=== PATIENT | male | born 1955 | race Caucasian/White ===

== ENCOUNTER 2018-06-23 11:05 | Day surgery (SDC) | payer BC, MEDICARE ==
[2018-06-22 14:00] VITALS: BMI 33.2
[2018-06-23 11:40] LABS: Hemoglobin 17.4 g/dL (14.0-18.0); Mean Corpuscular HGB CONC 33.4 g/dL (32.0-36.0); Mean Corpuscular Hemoglobin 28.2 pg (27.0-31.0); Mean Corpuscular Volume 84.4 fL (78.0-98.0); Mean Platelet Volume 9.3 fL (7.4-10.4); Platelet Count 178 thou/uL (130-400); RBC Distribution Width 15.2 % (11.5-14.5); Red Blood Cell (RBC) Count 6.18 mill/uL (4.70-6.10); White Blood Cell (WBC) Count 7.8 thou/uL (4.8-10.8)
[2018-06-23 11:41] LABS: Hemoglobin 17.2 g/dL (14.0-18.0)
[2018-06-23] MEDS ORDERED: Oxymetazoline HCl 0.05% ( 15 ML ) ONE ×2 (11:54→12:02)
[2018-06-23] MEDS ORDERED: Fentanyl 100 MCG/2 ML VIAL ONE ×4 (12:00→14:10)
[2018-06-23] MEDS ORDERED: Lidocaine 1% w/Epinephrine 1:100K 20 ML VIAL ONE (12:02)
[2018-06-23 12:12] LABS: Anion Gap 12 mmol/L (10-20); BUN (Urea Nitrogen) 16 mg/dL (8.4-25.7); Calc. Creatinine Clearance 115 mL/min (70-130); Carbon Dioxide 24 mmol/L (23-31); Chloride 107 mmol/L (98-107); Estimated GFR-MDRD 77; Glucose 103 mg/dL (80-115); Potassium 3.6 mmol/L (3.5-5.1); Sodium 139 mmol/L (136-145)
[2018-06-23] MEDS ORDERED: Rocuronium Bromide 10 MG/ML (10ML VIAL) ONE (13:25)
[2018-06-23] MEDS ORDERED: Lidocaine 1% PF 5 ML VIAL ONE (13:25)
[2018-06-23] MEDS ORDERED: Dexamethasone 20 MG/5 ML VIAL ONE (13:25)
[2018-06-23] MEDS ORDERED: PROPOFOL 200 MG/20 ML VIAL ONE (13:25)
[2018-06-23] MEDS ORDERED: Ondansetron PF 4 MG/2 ML Vial ONE (13:25)
[2018-06-23] MEDS ORDERED: Glycopyrrolate 0.2 MG/ML 5 ML SYRINGE ONE (13:25)
[2018-06-23] MEDS ORDERED: hydrALAZINE 20 MG/ML VIAL ONE (14:50)
[2018-06-23] MEDS ORDERED: HYDROcodone/Acetaminophen 5/325 mg Tablet ONE ×2 (15:13)
[2018-06-23] MEDS ORDERED: Labetalol HCl 100 MG/20 ML VIAL ONE (15:21)
--- NOTE | 2018-06-24 09:44 | OP ---
DATE OF PROCEDURE: 06/23/2018 PREOPERATIVE DIAGNOSES: 1. Chronic rhinosinusitis. 2. Allergic fungal sinusitis. 3. Nasal septal deviation. 4. Bilateral inferior turbinate hypertrophy. 5. Left middle turbinate angel bullosa. POSTOPERATIVE DIAGNOSES: 1. Chronic rhinosinusitis. 2. Allergic fungal sinusitis. 3. Nasal septal deviation. 4. Bilateral inferior turbinate hypertrophy. 5. Left middle turbinate angel bullosa. PROCEDURES PERFORMED: 1. Bilateral endoscopic sinus surgery, total ethmoidectomies. 2. Bilateral endoscopic sinus surgery, maxillary antrostomies. 3. Bilateral endoscopic sinus surgery, frontal sinusotomies. 4. Nasal septoplasty. 5. Bilateral inferior turbinate submucosal resection. 6. Endoscopic resection of left middle turbinate angel bullosa. ESTIMATED BLOOD LOSS: 50 mL. COMPLICATIONS: None. ANESTHESIA: GETA. PROCEDURE IN DETAIL: Patient was taken to the operating room and placed supine on the table. General endotracheal anesthesia was obtained by the anesthesia staff. Tube was secured in the left lower lip. Patient was then placed in the beach chair position, and Afrin pledgets were placed in the nasal cavity. Injections of 1% lidocaine with 1:100,000 epinephrine were made into the nasal septum as well as the inferior turbinates. Patient was then prepped and draped in standard surgical fashion for nasal surgery. Following this, the Afrin pledgets were removed. A Alvin incision was made on the left nasal septum. Submucoperichondrial dissection was performed. The deviated portions of the septum included portions of the cartilage and the bony septum. These isolated areas were removed using 3 cutting rongeurs. There was noted to be a large dorsal and caudal strut, left intact for support of the nose. The mucoperichondrial flaps were then reapproximated using a 4-0 gut stitch. Any straight pieces of cartilage were crushed prior to this and placed between the mucoperichondrial flaps. Following this, the inferior turbinates were then punctured with a submucosal coblation wand, and submucosal coblations were performed of multiple areas of the inferior portion of the anterior inferior turbinate. Please note that the submucosal microdebrider was used to submucosally resect the anterior and inferior portions of the inferior turbinates bilaterally. Following this, the inferior turbinates were then laterally fractured using a [place] elevator. Following this, the left middle turbinate angel bullosa was incised vertically with a sickle knife in the lateral portion of the left middle turbinate angel bullosa was removed using the straight Blakesley forceps and a 0-degree microdebrider. Following this, the uncinate process was identified bilaterally and was then anteriorly fractured using a ball-ended probe and was removed using the straight microdebrider and up-biting Blakesley forceps. Following this, the maxillary sinus ostia were identified using a ball-ended probe bilaterally and was then widened using the 40-degree microdebrider blade and the straight Blakesley forceps on the right side. Pus and purulence were encountered along with allergic fungal debris. This debris was sent for cultures as well as a curved suction was used to suction and irrigate the right maxillary sinus. Following this, the ethmoidal bulla was identified and was punctured on its medial and inferior aspect bilaterally with the microdebrider. Following this, ethmoidal bulla was removed using the microdebrider and the up-biting Blakesley forceps. Following this, the grand lamella was identified and was punctured in the posterior ethmoidal cells. Working from posterior to anterior, the ethmoidal cells were opened in a mucosal-sparing technique using the microdebrider and the up-biting Blakesley forceps. Following this, 45-degree endoscope along with 40-degree microdebrider blade were used to further open the frontal recess cells and identify and widen the frontal sinus ostia bilaterally. Following this, the nasal cavity was irrigated. Mirapex was placed within the middle meatus. Lisa splints were placed and secured. The patient tolerated the procedure well. Job ID: [id number]
== END 2018-06-23 16:30 | disposition home or self-care (01) ==
LOC: SDC 11:05
PROVIDERS: ATTEND Otolaryngology Plastic Surgery within the Head & Neck
PROC: 09TL8ZZ Resection of Nasal Turbinate, Via Natural or Artificial Opening Endoscopic (ICD-10-PCS; principal; 2018-06-23)
PROC: 09BM8ZZ Excision of Nasal Septum, Via Natural or Artificial Opening Endoscopic (ICD-10-PCS; principal; 2018-06-23)
DX: J32.8 Other chronic sinusitis (principal); J34.2 Deviated nasal septum; J34.3 Hypertrophy of nasal turbinates
CPT/HCPCS: 36415; 80048; 85014; 85018; 93005; 93010; J0360; J1100; J2001; J2405; J2704; J3010